=== PATIENT | female | born 1985 | race Caucasian/White ===

== ENCOUNTER 2016-12-29 18:56 | Emergency (ER) | payer OTHER | END 2016-12-29 19:28 | disposition home or self-care (01) | LOC: ER1 18:56 | DX: H10.9 Unspecified conjunctivitis (principal); F17.210 Nicotine dependence, cigarettes, uncomplicated | CPT/HCPCS: 99283 ==

== ENCOUNTER → 2020-09-09 | Outpatient (CLI) | payer BC ==
[~2020-09-09] MED LIST: COLACE 100MG C100 MG PO; IBUPROFEN400 MG PO; NORCO 7.5-3251 EACH PO; PROTONIX40 MG PO; ZANTAC150 MG PO
== END ==
LOC: RAD 17:38
DX: S67.21XA Crushing injury of right hand, initial encounter (principal); X58.XXXA Exposure to other specified factors, initial encounter
CPT/HCPCS: 73130